=== PATIENT | male | born 1940 | race African-American/Black ===

== ENCOUNTER → 2022-03-09 | Outpatient (CLI) | payer MEDICARE | LOC: CSHWCC 03-01 13:25 | PROVIDERS: ATTEND Nurse Practitioner Family | DX: T81.89XD Other complications of procedures, not elsewhere classified, subsequent encounter (principal); R60.0 Localized edema | CPT/HCPCS: 11042; 97139; 97605; G0463; 99203 ==

== ENCOUNTER 2022-03-23 13:40 | Outpatient (CLI) | payer MEDICARE | END 2022-03-23 13:41 | disposition home or self-care (01) | LOC: CSHWCC 13:40 | PROVIDERS: ATTEND Nurse Practitioner Family | DX: T81.89XD Other complications of procedures, not elsewhere classified, subsequent encounter (principal); R60.0 Localized edema; Z89.421 Acquired absence of other right toe(s) | CPT/HCPCS: 87070; 87077; 87186; 87205 ==

== ENCOUNTER 2022-04-13 10:50 | Outpatient (CLI) | payer MEDICARE | END 2022-04-13 10:51 | disposition home or self-care (01) | LOC: CSHWCC 10:50 | PROVIDERS: ATTEND Nurse Practitioner Family | DX: T81.89XD Other complications of procedures, not elsewhere classified, subsequent encounter (principal); L98.499 Non-pressure chronic ulcer of skin of other sites with unspecified severity; R60.0 Localized edema | CPT/HCPCS: 99214; G0463 ==

== ENCOUNTER 2022-05-04 09:49 | Outpatient (CLI) | payer MEDICARE | END 2022-05-04 09:50 | disposition home or self-care (01) | LOC: CSHWCC 09:49 | PROVIDERS: ATTEND Nurse Practitioner Family | DX: T81.89XD Other complications of procedures, not elsewhere classified, subsequent encounter (principal); L98.499 Non-pressure chronic ulcer of skin of other sites with unspecified severity; R60.0 Localized edema; Z89.421 Acquired absence of other right toe(s) | CPT/HCPCS: 99214; G0463 ==

== ENCOUNTER 2022-05-09 14:43 | Outpatient (CLI) | payer MEDICARE | END 2022-05-09 14:44 | disposition home or self-care (01) | LOC: CSHWCC 14:43 | PROVIDERS: ATTEND Nurse Practitioner Family | DX: T81.89XD Other complications of procedures, not elsewhere classified, subsequent encounter (principal); L98.499 Non-pressure chronic ulcer of skin of other sites with unspecified severity; R60.0 Localized edema; Z89.421 Acquired absence of other right toe(s) | CPT/HCPCS: 11042 ==

== ENCOUNTER 2022-06-15 13:53 | Outpatient (CLI) | payer MEDICARE | END 2022-06-15 13:54 | disposition home or self-care (01) | LOC: CSHWCC 13:53 | PROVIDERS: ATTEND Nurse Practitioner Family | DX: T81.89XD Other complications of procedures, not elsewhere classified, subsequent encounter (principal); L98.499 Non-pressure chronic ulcer of skin of other sites with unspecified severity; R60.0 Localized edema; Z89.421 Acquired absence of other right toe(s) | CPT/HCPCS: 99213; G0463 ==

== ENCOUNTER 2023-06-01 10:23 | Emergency (ER) | payer MEDICARE, BC | END 2023-06-01 10:54 | disposition left against medical advice (07) | LOC: CSHERS 10:23 | DX: Z53.21 Procedure and treatment not carried out due to patient leaving prior to being seen by health care provider (principal) ==

== ENCOUNTER 2023-10-01 12:52 | Emergency (ER) | payer BC, MEDICARE ==
[2023-10-01] MEDS ORDERED: Ketorolac Tromethamine 30 MG (1 mL) VIAL ONE (13:34)
== END 2023-10-01 13:20 | disposition home or self-care (01) ==
LOC: CSHERS 12:52
DX: M54.50 Low back pain, unspecified (principal); M54.2 Cervicalgia; I11.0 Hypertensive heart disease with heart failure; I50.9 Heart failure, unspecified
CPT/HCPCS: 96372; 99283; J1885

== ENCOUNTER 2023-10-27 13:37 | Emergency (ER) | payer MEDICARE ==
[2023-10-27 15:22] LABS: Hematocrit 34.1 % (38.8-50.0); Hemoglobin 11.1 g/dL (13.5-17.5); Mean Corpuscular HGB CONC 32.6 g/dL (32.0-36.0); Mean Corpuscular Hemoglobin 30.3 pg (27.0-33.0); Mean Corpuscular Volume 93.2 fL (81.2-95.1); Mean Platelet Volume 10.6 fL (7.4-10.4); Platelet Count 216 10x3/uL (150-450); RBC Distribution Width 12.1 % (11.5-14.5); Red Blood Cell (RBC) Count 3.66 10x6/uL (4.32-5.72); White Blood Cell (WBC) Count 6.5 10x3/uL (3.5-10.5)
[2023-10-27 15:33] LABS: ALT (SGPT) 9 U/L (8-55); AST (SGOT) 16 U/L (5-34); Albumin 3.1 g/dL (3.4-4.8); Alkaline Phosphatase 68 U/L (40-110); Anion Gap 13 mmol/L (10-20); BUN (Urea Nitrogen) 45 mg/dL (8.4-25.7); Bilirubin, Total 0.3 mg/dL (0.2-1.2); Calc. Creatinine Clearance 0 mL/min (70-130); Calcium 9.1 mg/dL (7.8-10.44); Carbon Dioxide 24 mmol/L (23-31); Chloride 112 mmol/L (98-107); Estimated GFR 20; Globulin 3.3 g/dL (2.4-3.5); Glucose 126 mg/dL (83-110); Protein, Total 6.4 g/dL (5.8-8.1); Sodium 143 mmol/L (136-145)
[2023-10-27 15:34] LABS: MDiff Complete? YES
[2023-10-27 15:54] LABS: Band 27 % (5-11); Eosinophils 5 % (0-10); Lymphocytes 19 % (21-51); Monocytes 24 % (0-10); Neutrophil 25 % (42-75); Potassium 6.4 mmol/L (3.5-5.1); Troponin I 0.226 ng/mL (< 0.028)
[2023-10-27 15:58] LABS: RBC Morph Comment Within Normal Limits
[2023-10-27 15:59] LABS: Platelet Adequacy Comment Appears Adequate
[2023-10-27] MEDS ORDERED: Aspirin Chewable 81 MG TAB ONE (16:01)
[2023-10-27] MEDS ORDERED: Vancomycin 2 GM in Sodium Chloride 0.9% 500 ML IVPB SCH (16:30)
[2023-10-27] MEDS ORDERED: Insulin Regular 300 UNITS/3 ML VIAL IVP SCH (16:30)
[2023-10-27] MEDS ORDERED: LOKELMA 10 GM PACKET PO SCH (16:45)
[2023-10-27] MEDS ORDERED: Cefepime 2 GM in Sodium Chloride 0.9% 100 ML IVPB SCH (16:45)
[2023-10-27] MEDS ORDERED: Calcium Chloride 1 GM/10 ML Abboject SYRINGE ONE (16:51)
[2023-10-27] MEDS ORDERED: Sodium Bicarb 50 MEQ/50 ML Abboject 8.4% SYRINGE ONE (16:51)
[2023-10-27] MEDS ORDERED: Cefepime 2 GM VIAL ONE (16:51)
[2023-10-27] MEDS ORDERED: Dextrose 50% Abboject 50 ML SYRINGE ONE (16:52)
[2023-10-27] MEDS ORDERED: Insulin Regular 300 UNITS/3 ML VIAL ONE (16:52)
[2023-10-27 17:48] LABS: Bilirubin Neg (Negative); Blood, Urine Negative (Negative); Clarity Clear (Clear); Glucose, Urine (Dipstick) Normal (Negative); Ketone, Urine Negative (Negative); Leukocyte 100 (Negative); Nitrite Negative (Negative); Protein, Urine (Dipstick) 15 mg/dl (Neg-Trace); Specific Gravity, Urine 1.015 (1.005-1.030); Urobilinogen Normal mg/dL (Less than 2)
[2023-10-27 18:06] LABS: Bacteria/HPF Rare-Few HPF (None Seen); CAUTI Indications for Culture Pelvic or flank pain; RBC/HPF None Seen HPF (0-3); Squamous Epithelial 0-3 HPF (0-3); Urine Culture Reflex No No
== END 2023-10-27 18:47 | disposition short-term general hospital (02) ==
LOC: CSHERS 13:37
DX: A41.9 Sepsis, unspecified organism (principal); R79.89 Other specified abnormal findings of blood chemistry; E87.5 Hyperkalemia; N19 Unspecified kidney failure; I11.0 Hypertensive heart disease with heart failure; I50.9 Heart failure, unspecified
CPT/HCPCS: 36415; 71045; 80053; 81001; 83605; 83880; 84484; 85025; 87040; 87086; 93005; J0692; J1815; J3370; J7030; J7999

== ENCOUNTER 2023-11-06 08:44 | Outpatient (CLI) | payer MEDICARE | END 2023-11-06 08:45 | disposition home or self-care (01) | LOC: CSHWCC 08:44 | PROVIDERS: ATTEND Nurse Practitioner Family | DX: I87.312 Chronic venous hypertension (idiopathic) with ulcer of left lower extremity (principal); L97.322 Non-pressure chronic ulcer of left ankle with fat layer exposed; I89.0 Lymphedema, not elsewhere classified; I73.9 Peripheral vascular disease, unspecified | CPT/HCPCS: 11042 ==

== ENCOUNTER 2023-11-20 11:06 | Outpatient (CLI) | payer MEDICARE | END 2023-11-20 11:07 | disposition home or self-care (01) | LOC: CSHWCC 11:06 | PROVIDERS: ATTEND Nurse Practitioner Family | DX: L89.893 Pressure ulcer of other site, stage 3 (principal); I87.312 Chronic venous hypertension (idiopathic) with ulcer of left lower extremity; L97.322 Non-pressure chronic ulcer of left ankle with fat layer exposed; I89.0 Lymphedema, not elsewhere classified; I73.9 Peripheral vascular disease, unspecified | CPT/HCPCS: 11042; 11045 ==

== ENCOUNTER 2023-12-14 14:31 | Outpatient (CLI) | payer MEDICARE | END 2023-12-14 14:32 | disposition home or self-care (01) | LOC: CSHWCC 14:31 | PROVIDERS: ATTEND Nurse Practitioner Family | DX: L89.893 Pressure ulcer of other site, stage 3 (principal); I87.312 Chronic venous hypertension (idiopathic) with ulcer of left lower extremity; L97.322 Non-pressure chronic ulcer of left ankle with fat layer exposed; I73.9 Peripheral vascular disease, unspecified; I89.0 Lymphedema, not elsewhere classified | CPT/HCPCS: 11042 ==

== ENCOUNTER 2024-01-11 17:39 | Observation (INO) | payer MEDICARE ==
[2024-01-11 18:03] VITALS: BMI 39.2
[2024-01-11] MEDS ORDERED: Acetaminophen 650 MG Suppository PR PRN (18:32)
[2024-01-11] MEDS ORDERED: Calcium Carbonate 500 MG ChewTAB PO PRN (18:32)
[2024-01-11] MEDS ORDERED: Ondansetron ODT 4 MG TAB PO PRN (18:32)
[2024-01-11] MEDS ORDERED: Senokot S 8.6-50 MG TAB PO PRN (18:32)
[2024-01-11] MEDS ORDERED: Nitroglycerin 0.4 MG TAB (25 Tab Bottle) SL PRN (18:32)
[2024-01-11] MEDS ORDERED: Ondansetron PF 4 MG/2 ML Vial IVP PRN (18:32)
[2024-01-11] MEDS ORDERED: Communication Order-Pharmacy FS SCH (19:00)
[2024-01-11 19:33] LABS: #Basophils 0.04 10x3/uL (0.0-0.2); #Eosinphils 0.28 10x3/uL (0.0-0.5); #Monocytes 1.13 10x3/uL (0.0-1.1); #Neutrophils 7.02 10x3/uL (1.5-8.4); %Basophils 0.4 % (0.0-2.0); %Eosinophils 2.7 % (0.0-6.0); %Lymphocytes 18.2 % (18.0-47.0); %Monocytes 10.9 % (0.0-10.0); %Neutrophils 67.4 % (40.0-75.0); Hematocrit 40.5 % (38.8-50.0); Hemoglobin 12.3 g/dL (13.5-17.5); Mean Corpuscular HGB CONC 30.4 g/dL (32.0-36.0); Mean Corpuscular Hemoglobin 25.8 pg (27.0-33.0); Mean Corpuscular Volume 84.9 fL (81.2-95.1); Mean Platelet Volume 10.4 fL (7.4-10.4); Platelet Count 319 10x3/uL (150-450); RBC Distribution Width 14.1 % (11.5-14.5); Red Blood Cell (RBC) Count 4.77 10x6/uL (4.32-5.72); White Blood Cell (WBC) Count 10.4 10x3/uL (3.5-10.5)
[2024-01-11 20:31] LABS: ALT (SGPT) 13 U/L (8-55); AST (SGOT) 20 U/L (5-34); Albumin 3.5 g/dL (3.4-4.8); Alkaline Phosphatase 77 U/L (40-110); Anion Gap 18 mmol/L (10-20); BUN (Urea Nitrogen) 12 mg/dL (8.4-25.7); Bilirubin, Total 0.4 mg/dL (0.2-1.2); Calc. Creatinine Clearance 86 mL/min (70-130); Calcium 10.3 mg/dL (7.8-10.44); Carbon Dioxide 21 mmol/L (23-31); Chloride 104 mmol/L (98-107); Estimated GFR 60; Globulin 4.9 g/dL (2.4-3.5); Glucose 104 mg/dL (83-110); Potassium 3.9 mmol/L (3.5-5.1); Protein, Total 8.4 g/dL (5.8-8.1); Sodium 139 mmol/L (136-145)
[2024-01-11] MEDS: Famotidine 20 MG TAB PO SCH (21:44)
[2024-01-11] MEDS: Enoxaparin 120 MG/0.8 ML SYRINGE SC SCH (21:45)
[2024-01-11] MEDS: Atorvastatin Calcium 20 MG TAB PO SCH (21:45)
[2024-01-11] MEDS: Aspirin 81 mg Enteric Coated Tablet PO SCH (21:46)
[2024-01-11] MEDS: Polyethylene Glycol 3350 17 GM Packet PO SCH (22:00)
[2024-01-11] MEDS ORDERED: Sodium Chloride 0.9% 500 ML IV SCH (23:30)
[2024-01-12] MEDS: Nitroglycerin 2% Ointment 1 INCH/1 GM Packet TOP SCH (01:27)
[2024-01-12] MEDS: Furosemide 20 MG (2 mL) VIAL SLOW IVP SCH (01:27)
[2024-01-12] MEDS: Acetaminophen 325 MG TAB PO SCH (01:28)
[2024-01-12 04:19] LABS: Anion Gap 17 mmol/L (10-20); BUN (Urea Nitrogen) 11 mg/dL (8.4-25.7); Calc. Creatinine Clearance 93 mL/min (70-130); Calcium 9.1 mg/dL (7.8-10.44); Carbon Dioxide 20 mmol/L (23-31); Chloride 107 mmol/L (98-107); Estimated GFR 66; Glucose 114 mg/dL (83-110); Sodium 140 mmol/L (136-145)
[2024-01-12 05:00] LABS: Troponin I 0.058 ng/mL (< 0.028)
[2024-01-12] MEDS: Allopurinol 300 MG TAB PO SCH (06:21)
[2024-01-12] MEDS: Aspirin 81 mg Enteric Coated Tablet PO SCH (06:23)
[2024-01-12 06:39] VITALS: BP 124/76; TEMP 98.7
[2024-01-12] MEDS ORDERED: Nitroglycerin 50 MG/250 ML BOT 250 ML ONE (08:09)
[2024-01-12] MEDS ORDERED: Lidocaine 1% (PF) 30 ML VIAL ONE ×2 (08:09→09:39)
[2024-01-12] MEDS ORDERED: Heparin 10,000 UNITS/ 10 ML VIAL ONE ×2 (08:09→10:25)
[2024-01-12] MEDS ORDERED: fentaNYL 50 mcg/mL 1 mL Vial ONE ×2 (08:10→10:13)
[2024-01-12] MEDS ORDERED: Midazolam HCl 2 mg/2 ml Vial ONE (08:10)
[2024-01-12] MEDS ORDERED: Atropine Sulfate 1 mg/1 ml Vial ONE (08:10)
[2024-01-12] MEDS ORDERED: PHENYLEPHRINE-NS 100 MCG/ML 10 ML SYRINGE ONE (09:02)
[2024-01-12] MEDS ORDERED: TICAGRELOR 90 MG TABLET ONE (09:17)
[2024-01-12] MEDS ORDERED: Protamine Sulfate 50 MG/5 ML VIAL ONE (11:03)
[2024-01-12] MEDS ORDERED: Metoprolol Tartrate 5 MG (5 mL) VIAL ONE (11:16)
[2024-01-12] MEDS ORDERED: hydrALAZINE 20 MG/ML VIAL ONE ×2 (11:23→11:47)
[2024-01-12] MEDS ORDERED: Furosemide 40 MG (4 mL) VIAL ONE (11:27)
[2024-01-12] MEDS ORDERED: Rocuronium Bromide 10 MG/ML (10ML VIAL) ONE (11:37)
[2024-01-12] MEDS ORDERED: Propofol 1,000 MG/100 ML VIAL IV ONE ×2 (11:47→14:27)
[2024-01-12] MEDS ORDERED: Enalaprilat Dihydrate 1.25 MG/ML VIAL SLOW IVP SCH (12:15)
[2024-01-12] MEDS ORDERED: Iopamidol 300 61% 100 ML VIAL FS ONE (12:17)
[2024-01-12] MEDS ORDERED: PROPOFOL 0 ML ONE (13:56)
== END 2024-01-12 14:40 | disposition short-term general hospital (02) ==
LOC: INTOOBSV 17:39 → CSHTELE 17:39
PROVIDERS: ADMIT Family Medicine; ATTEND Family Medicine
PROC: 4A023N7 Measurement of Cardiac Sampling and Pressure, Left Heart, Percutaneous Approach (ICD-10-PCS; principal; 2024-01-11)
DX: I25.110 Atherosclerotic heart disease of native coronary artery with unstable angina pectoris (principal); I24.9 Acute ischemic heart disease, unspecified; I12.9 Hypertensive chronic kidney disease with stage 1 through stage 4 chronic kidney disease, or unspecified chronic kidney disease; N18.30 Chronic kidney disease, stage 3 unspecified; E78.5 Hyperlipidemia, unspecified; I73.9 Peripheral vascular disease, unspecified; K21.9 Gastro-esophageal reflux disease without esophagitis; G47.33 Obstructive sleep apnea (adult) (pediatric); M10.9 Gout, unspecified; D64.9 Anemia, unspecified; Z79.899 Other long term (current) drug therapy
CPT/HCPCS: 33990; 71045; 80048; 80053; 83880; 84484 ×2; 85025; 85347 ×2; 92972; 92978; 92979; 93005; 93458; 94760; 96372; 96374; C1753; C1760 ×2; C1761; C1769; C1874; C1887 ×2; C1894; C9600; G0278; G0378 ×2; J0360; J1644; J1650; J1940 ×2; J2001; J2250; J2704; J2720; J3010; Q9967; 36415; 92928; 93010; 99152; 99153; J0461

== ENCOUNTER 2024-02-26 09:48 | Outpatient (CLI) | payer MEDICARE | END 2024-02-26 09:49 | disposition home or self-care (01) | LOC: CSHWCC 09:48 | PROVIDERS: ATTEND Nurse Practitioner Family | DX: I87.312 Chronic venous hypertension (idiopathic) with ulcer of left lower extremity (principal); L97.322 Non-pressure chronic ulcer of left ankle with fat layer exposed; I89.0 Lymphedema, not elsewhere classified; I73.9 Peripheral vascular disease, unspecified | CPT/HCPCS: 11042; 99213; G0463 ==

== ENCOUNTER 2024-03-04 10:02 | Outpatient (CLI) | payer MEDICARE | END 2024-03-04 10:03 | disposition home or self-care (01) | LOC: CSHWCC 10:02 | PROVIDERS: ATTEND Nurse Practitioner Family | DX: I87.312 Chronic venous hypertension (idiopathic) with ulcer of left lower extremity (principal); L97.322 Non-pressure chronic ulcer of left ankle with fat layer exposed; I89.0 Lymphedema, not elsewhere classified; I73.9 Peripheral vascular disease, unspecified | CPT/HCPCS: 11042; G0463; 99212 ==

== ENCOUNTER 2024-03-11 11:42 | Outpatient (CLI) | payer MEDICARE | END 2024-03-11 11:43 | disposition home or self-care (01) | LOC: CSHWCC 11:42 | PROVIDERS: ATTEND Nurse Practitioner Family | DX: I87.312 Chronic venous hypertension (idiopathic) with ulcer of left lower extremity (principal); L97.322 Non-pressure chronic ulcer of left ankle with fat layer exposed; I89.0 Lymphedema, not elsewhere classified; I73.9 Peripheral vascular disease, unspecified | CPT/HCPCS: 11042; 87070; 87077; 87186; 87205 ==

== ENCOUNTER 2024-03-18 12:41 | Outpatient (CLI) | payer MEDICARE | END 2024-03-18 12:42 | disposition home or self-care (01) | LOC: CSHWCC 12:41 | PROVIDERS: ATTEND Nurse Practitioner Family | DX: I87.312 Chronic venous hypertension (idiopathic) with ulcer of left lower extremity (principal); L97.322 Non-pressure chronic ulcer of left ankle with fat layer exposed; I89.0 Lymphedema, not elsewhere classified; I73.9 Peripheral vascular disease, unspecified | CPT/HCPCS: 11042; 99213; G0463 ==

== ENCOUNTER 2024-03-25 09:15 | Outpatient (CLI) | payer MEDICARE | END 2024-03-25 09:16 | disposition home or self-care (01) | LOC: CSHWCC 09:15 | PROVIDERS: ATTEND Nurse Practitioner Family | DX: I87.312 Chronic venous hypertension (idiopathic) with ulcer of left lower extremity (principal); L97.322 Non-pressure chronic ulcer of left ankle with fat layer exposed; I89.0 Lymphedema, not elsewhere classified; I73.9 Peripheral vascular disease, unspecified | CPT/HCPCS: 11042; 99212; G0463 ==

== ENCOUNTER 2024-04-01 09:41 | Outpatient (CLI) | payer MEDICARE | END 2024-04-01 09:42 | disposition home or self-care (01) | LOC: CSHWCC 09:41 | PROVIDERS: ATTEND Family Medicine | DX: I87.312 Chronic venous hypertension (idiopathic) with ulcer of left lower extremity (principal); L97.322 Non-pressure chronic ulcer of left ankle with fat layer exposed; I89.0 Lymphedema, not elsewhere classified; I73.9 Peripheral vascular disease, unspecified | CPT/HCPCS: 97597 ==

== ENCOUNTER 2024-04-08 09:48 | Outpatient (CLI) | payer MEDICARE | END 2024-04-08 09:49 | disposition home or self-care (01) | LOC: CSHWCC 09:48 | PROVIDERS: ATTEND Nurse Practitioner Family | DX: I87.312 Chronic venous hypertension (idiopathic) with ulcer of left lower extremity (principal); L97.322 Non-pressure chronic ulcer of left ankle with fat layer exposed; I89.0 Lymphedema, not elsewhere classified; I73.9 Peripheral vascular disease, unspecified | CPT/HCPCS: 11042 ==

== ENCOUNTER 2024-04-10 16:30 | Emergency (ER) | payer MEDICARE ==
[~2024-04-10 16:30] MED LIST: Iopamidol 300 61% 100 ML VIAL FS ONE
[2024-04-10 17:39] LABS: INR-International Normal Ratio 1.1; PTT 33.9 sec (22.0-33.0); Prothrombin Time 11.5 sec (9.5-12.1)
[2024-04-10 17:44] LABS: ALT (SGPT) 9 U/L (8-55); AST (SGOT) 16 U/L (5-34); Albumin 3.4 g/dL (3.4-4.8); Alkaline Phosphatase 57 U/L (40-110); Anion Gap 13 mmol/L (10-20); BUN (Urea Nitrogen) 33 mg/dL (8.4-25.7); Bilirubin, Total 0.3 mg/dL (0.2-1.2); Calc. Creatinine Clearance 0 mL/min (70-130); Calcium 9.6 mg/dL (7.8-10.44); Carbon Dioxide 23 mmol/L (23-31); Chloride 106 mmol/L (98-107); Estimated GFR 42; Globulin 3.9 g/dL (2.4-3.5); Glucose 101 mg/dL (83-110); Potassium 3.6 mmol/L (3.5-5.1); Protein, Total 7.3 g/dL (5.8-8.1); Sodium 138 mmol/L (136-145)
[2024-04-10 17:45] LABS: #Basophils 0.04 10x3/uL (0.0-0.2); #Eosinophils 0.31 10x3/uL (0.0-0.5); #Monocytes 1.17 10x3/uL (0.0-1.1); #Neutrophils 4.39 10x3/uL (1.5-8.4); %Basophils 0.5 % (0.0-2.0); %Lymphocytes 23.5 % (18.0-47.0); %Monocytes 15.1 % (0.0-10.0); %Neutrophils 56.5 % (40.0-75.0); Hematocrit 34.6 % (38.8-50.0); Hemoglobin 10.2 g/dL (13.5-17.5); Mean Corpuscular HGB CONC 29.5 g/dL (32.0-36.0); Mean Corpuscular Hemoglobin 23.7 pg (27.0-33.0); Mean Corpuscular Volume 80.5 fL (81.2-95.1); Mean Platelet Volume 11.3 fL (7.4-10.4); Platelet Count 186 10x3/uL (150-450); RBC Distribution Width 18.6 % (11.5-14.5); White Blood Cell (WBC) Count 7.8 10x3/uL (3.5-10.5)
[2024-04-10 20:17] LABS: Bilirubin Neg (Negative); Blood, Urine 250 (Negative); Clarity Clear (Clear); Glucose, Urine (Dipstick) Normal (Negative); Ketone, Urine Negative (Negative); Leukocyte Negative (Negative); Nitrite Negative (Negative); Protein, Urine (Dipstick) Negative (Neg-Trace); Specific Gravity, Urine 1.015 (1.005-1.030); Urobilinogen Normal mg/dL (Less than 2)
[2024-04-10 20:32] LABS: Bacteria/HPF Rare-Few HPF (None Seen); CAUTI Indications for Culture Pelvic or flank pain; RBC/HPF 21-50 HPF (0-3); Squamous Epithelial 0-3 HPF (0-3); Urine Culture Reflex No No; WBC/HPF 0-3 HPF (0-3)
[2024-04-10] MEDS ORDERED: Ciprofloxacin 500 MG TAB ONE (21:03)
== END 2024-04-10 21:22 | disposition home or self-care (01) ==
LOC: CSHERS 16:30
DX: R31.9 Hematuria, unspecified (principal); I11.0 Hypertensive heart disease with heart failure; I50.9 Heart failure, unspecified; I25.10 Atherosclerotic heart disease of native coronary artery without angina pectoris
CPT/HCPCS: 36415; 74177; 80053; 81001; 85025; 85610; 85730

== ENCOUNTER 2024-04-23 15:31 | Outpatient (CLI) | payer MEDICARE | END 2024-04-23 15:32 | disposition home or self-care (01) | LOC: CSHWCC 15:31 | PROVIDERS: ATTEND Nurse Practitioner Family | DX: I87.312 Chronic venous hypertension (idiopathic) with ulcer of left lower extremity (principal); L97.322 Non-pressure chronic ulcer of left ankle with fat layer exposed; I89.0 Lymphedema, not elsewhere classified; I73.9 Peripheral vascular disease, unspecified | CPT/HCPCS: 11042 ==

== ENCOUNTER 2024-04-30 10:52 | Outpatient (CLI) | payer MEDICARE | END 2024-04-30 10:53 | disposition home or self-care (01) | LOC: CSHWCC 10:52 | PROVIDERS: ATTEND Nurse Practitioner Family | DX: I87.312 Chronic venous hypertension (idiopathic) with ulcer of left lower extremity (principal); L97.322 Non-pressure chronic ulcer of left ankle with fat layer exposed; I73.9 Peripheral vascular disease, unspecified; I89.0 Lymphedema, not elsewhere classified | CPT/HCPCS: 11042 ==

== ENCOUNTER 2024-05-07 11:15 | Outpatient (CLI) | payer MEDICARE | END 2024-05-07 11:16 | disposition home or self-care (01) | LOC: CSHWCC 11:15 | PROVIDERS: ATTEND Nurse Practitioner Family | DX: I87.312 Chronic venous hypertension (idiopathic) with ulcer of left lower extremity (principal); L97.322 Non-pressure chronic ulcer of left ankle with fat layer exposed; I73.9 Peripheral vascular disease, unspecified; I89.0 Lymphedema, not elsewhere classified | CPT/HCPCS: 97597 ==

== ENCOUNTER 2024-05-16 14:36 | Outpatient (CLI) | payer SELFPAY | END 2024-05-16 14:37 | disposition home or self-care (01) | LOC: CSHWCC 14:36 | PROVIDERS: ATTEND Nurse Practitioner Family | DX: I87.312 Chronic venous hypertension (idiopathic) with ulcer of left lower extremity (principal); L97.322 Non-pressure chronic ulcer of left ankle with fat layer exposed; I89.0 Lymphedema, not elsewhere classified; I73.9 Peripheral vascular disease, unspecified | CPT/HCPCS: 99213; G0463 ==

== ENCOUNTER 2024-06-12 16:24 | Outpatient (CLI) | payer MEDICARE | END 2024-06-12 16:25 | disposition home or self-care (01) | LOC: CSHWCC 16:24 | PROVIDERS: ATTEND Nurse Practitioner Family | DX: I87.312 Chronic venous hypertension (idiopathic) with ulcer of left lower extremity (principal); L97.322 Non-pressure chronic ulcer of left ankle with fat layer exposed; I73.9 Peripheral vascular disease, unspecified; I89.0 Lymphedema, not elsewhere classified | CPT/HCPCS: 11042 ==

== ENCOUNTER 2024-12-05 09:31 | Outpatient (CLI) | payer MEDICARE | END 2024-12-05 09:32 | disposition home or self-care (01) | LOC: CSHWCC 09:31 | PROVIDERS: ATTEND Nurse Practitioner Family | DX: L89.623 Pressure ulcer of left heel, stage 3 (principal); I89.0 Lymphedema, not elsewhere classified; I73.9 Peripheral vascular disease, unspecified | CPT/HCPCS: 11042 ==

== ENCOUNTER 2024-12-26 10:08 | Outpatient (CLI) | payer MEDICARE | END 2024-12-26 10:09 | disposition home or self-care (01) | LOC: CSHWCC 10:08 | PROVIDERS: ATTEND Nurse Practitioner Family | DX: L89.623 Pressure ulcer of left heel, stage 3 (principal); I89.0 Lymphedema, not elsewhere classified; I73.9 Peripheral vascular disease, unspecified | CPT/HCPCS: 11042 ==

== ENCOUNTER 2024-12-28 09:17 | Emergency (ER) | payer MEDICARE ==
[2024-12-28] MEDS ORDERED: Acetaminophen 500 MG TAB ONE (10:20)
[2024-12-28 10:35] LABS: #Basophils 0.04 10x3/uL (0.0-0.2); #Eosinophils 0.25 10x3/uL (0.0-0.5); #Monocytes 1.01 10x3/uL (0.0-1.1); #Neutrophils 3.58 10x3/uL (1.5-8.4); %Basophils 0.6 % (0.0-2.0); %Eosinophils 3.9 % (0.0-6.0); %Lymphocytes 24.1 % (18.0-47.0); %Monocytes 15.7 % (0.0-10.0); %Neutrophils 55.5 % (40.0-75.0); Hematocrit 36.9 % (38.8-50.0); Hemoglobin 11.6 g/dL (13.5-17.5); Mean Corpuscular Hemoglobin 26.9 pg (27.0-33.0); Mean Corpuscular Volume 85.6 fL (81.2-95.1); Platelet Count 189 10x3/uL (150-450); Red Blood Cell (RBC) Count 4.31 10x6/uL (4.32-5.72); White Blood Cell (WBC) Count 6.44 10x3/uL (3.5-10.5)
[2024-12-28 10:50] LABS: ALT (SGPT) 9 U/L (Less than 45); AST (SGOT) 18 U/L (11-34); Albumin 3.8 g/dL (3.1-4.5); Alkaline Phosphatase 65 U/L (40-110); Anion Gap 13 mmol/L (10-20); BUN (Urea Nitrogen) 24 mg/dL (8.4-25.7); Bilirubin, Total 0.2 mg/dL (0.3-1.2); Calc. Creatinine Clearance 0 mL/min (70-130); Calcium 9.8 mg/dL (7.8-10.44); Carbon Dioxide 28 mmol/L (23-31); Chloride 104 mmol/L (98-107); Globulin 3.4 g/dL (2.4-3.5); Glucose 119 mg/dL (83-110); Potassium 4.1 mmol/L (3.5-5.1); Sodium 141 mmol/L (136-145)
[2024-12-28 10:53] LABS: Troponin I 0.049 ng/mL (< 0.028)
[2024-12-28 12:34] LABS: Troponin I 0.031 ng/mL (< 0.028)
== END 2024-12-28 13:36 | disposition home or self-care (01) ==
LOC: CSHERS 09:17
DX: M25.511 Pain in right shoulder (principal); R79.89 Other specified abnormal findings of blood chemistry; E78.5 Hyperlipidemia, unspecified; I11.0 Hypertensive heart disease with heart failure; I50.9 Heart failure, unspecified; K21.9 Gastro-esophageal reflux disease without esophagitis; N28.9 Disorder of kidney and ureter, unspecified; I25.10 Atherosclerotic heart disease of native coronary artery without angina pectoris; Z55.6 Problems related to health literacy; Z95.5 Presence of coronary angioplasty implant and graft; Z79.01 Long term (current) use of anticoagulants; Z79.899 Other long term (current) drug therapy
CPT/HCPCS: 36415; 71045; 80053; 83880; 84484; 85025; 85379; 93005

== ENCOUNTER 2025-01-02 09:37 | Outpatient (CLI) | payer MEDICARE | END 2025-01-02 09:38 | disposition home or self-care (01) | LOC: CSHWCC 09:37 | PROVIDERS: ATTEND Nurse Practitioner Family | DX: L89.623 Pressure ulcer of left heel, stage 3 (principal); I89.0 Lymphedema, not elsewhere classified; I73.9 Peripheral vascular disease, unspecified | CPT/HCPCS: 11042 ==

== ENCOUNTER 2025-01-16 09:27 | Outpatient (CLI) | payer MEDICARE | END 2025-01-16 09:28 | disposition home or self-care (01) | LOC: CSHWCC 09:27 | PROVIDERS: ATTEND Nurse Practitioner Family | DX: L89.623 Pressure ulcer of left heel, stage 3 (principal); I89.0 Lymphedema, not elsewhere classified; I73.9 Peripheral vascular disease, unspecified | CPT/HCPCS: 11042 ==

== ENCOUNTER 2025-01-23 09:58 | Outpatient (CLI) | payer MEDICARE | END 2025-01-23 09:59 | disposition home or self-care (01) | LOC: CSHWCC 09:58 | PROVIDERS: ATTEND Nurse Practitioner Family | DX: L89.623 Pressure ulcer of left heel, stage 3 (principal); I89.0 Lymphedema, not elsewhere classified; I73.9 Peripheral vascular disease, unspecified | CPT/HCPCS: 11042 ==

== ENCOUNTER 2025-01-30 11:08 | Outpatient (CLI) | payer MEDICARE | END 2025-01-30 11:09 | disposition home or self-care (01) | LOC: CSHWCC 11:08 | PROVIDERS: ATTEND Nurse Practitioner Family | DX: L89.623 Pressure ulcer of left heel, stage 3 (principal); I89.0 Lymphedema, not elsewhere classified; I73.9 Peripheral vascular disease, unspecified | CPT/HCPCS: 11042 ==

== ENCOUNTER 2025-02-06 10:08 | Outpatient (CLI) | payer MEDICARE | END 2025-02-06 10:09 | disposition home or self-care (01) | LOC: CSHWCC 10:08 | PROVIDERS: ATTEND Nurse Practitioner Family | DX: L89.623 Pressure ulcer of left heel, stage 3 (principal); I73.9 Peripheral vascular disease, unspecified; I89.0 Lymphedema, not elsewhere classified | CPT/HCPCS: 11042 ==

== ENCOUNTER 2025-03-06 10:05 | Outpatient (CLI) | payer MEDICARE | END 2025-03-06 10:06 | disposition home or self-care (01) | LOC: CSHWCC 10:05 | PROVIDERS: ATTEND Nurse Practitioner Family | DX: L89.623 Pressure ulcer of left heel, stage 3 (principal); I89.0 Lymphedema, not elsewhere classified; I73.9 Peripheral vascular disease, unspecified | CPT/HCPCS: 97597 ==